=== PATIENT | female | born 1980 | race Caucasian/White ===

== ENCOUNTER 2019-01-25 14:29 | Emergency (ER) | payer OTHER ==
[~2019-01-25] VITALS: Ht 170.2 cm; Wt 85.5 kg
== END 2019-01-25 16:15 | disposition home or self-care (01) ==
LOC: ED 14:29
DX: S93.401A Sprain of unspecified ligament of right ankle, initial encounter (principal); F17.200 Nicotine dependence, unspecified, uncomplicated; Z88.0 Allergy status to penicillin; Z88.1 Allergy status to other antibiotic agents; X50.9XXA Other and unspecified overexertion or strenuous movements or postures, initial encounter
CPT/HCPCS: 73610; 99283-25

== ENCOUNTER 2019-02-13 15:06 | Emergency (ER) | payer OTHER ==
[~2019-02-13] VITALS: Ht 170.2 cm; Wt 85.5 kg
--- OUTSIDE RECORDS SUMMARY | ~2019-02-13 | XMS | Encounter Summary ---
Demographics + + + | Address | [address] | | | [place] [address] | + + + | Home Phone | | + + + | Preferred Language | Unknown | + + + | Marital Status | | + + + | Episcopalian Affiliation | Unknown | + + + | Race | Unknown | + + + | Ethnic Group | Unknown | + + + Author + + + | Author | [facility] [place] | | | and [place] | + + + | Organization | [facility] [place] | | | and [place] | + + + | Address | Unknown | + + + | Phone | Unavailable | + + + Support + + + + + | Name | Relationship | Address | Phone | + + + + + | Darrius Lenz | ECON | Unknown | | + + + + + | KishoreSoha | ECON | NA | | | | | JUNIE Gould | | + + + + + Care Team Providers + +------+ + | Care Bull Fiddle Player Name | Role | Phone | + +------+ + | Gian Kothari MD | PCP | | + +------+ + Reason for Referral Evaluate & Treat (Routine) +--------+ + + + + + | Status | Reason | Specialty | Diagnoses / | Referred By | Referred To | | | | | Procedures | Contact | Contact | +--------+ + + + + + | Closed | Specialty | Gastroenterol | Diagnoses | Cassidy, | Shahab, | | | Ainsley | carlosy | Epigastric | Vimal | Ralph Abraham MD | | | Required | | abdominal | Shiva DO | [address], | | | | | pain | [address] | | | | | | [address] | [place], | | | | | | [place], | [place] [address] | | | | | | [place] [address] | Phone: | | | | | | Phone: | [phone] | | | | | | [phone] | Fax: | | | | | | Fax: | [phone] | | | | | | [phone] | | +--------+ + + + + + Reason for Visit + + + | Reason | Comments | + + + | Abdominal Pain | | + + + | Gastric Reflux | | + + + Encounter Details +--------+ + + + + | Date | Type | Department | Care Team | Description | +--------+ + + + + | 11/19/ | Emergency | [facility] | Vimal Benjamin | Epigastric abdominal | | 2019 | | [facility] | DO Shiva [address] | pain (Primary Dx) | | | | CENTER [address] | [facility] | | | | | [place] | [place] [address] | | | | | [address] | [phone] | | | | | [phone] | | | +--------+ + + + + Social History + + + +--------+ + | Tobacco Use | Types | Packs/Day | Years | Date | | | | | Used | | + + + +--------+ + | Current Every Day | Cigarettes | 0.5 | 21 | Started: 1993 | | Smoker | | | | | + + + +--------+ + + +---+---+---+ | Smokeless Tobacco: | | | | | Never Used | | | | + +---+---+---+ + + +---------+ + | Alcohol Use | Drinks/We | oz/Week | Comments | | | ek | | | + + +---------+ + | Yes | 0 | 0.0 | Use: Current wine cooler every 6 months | | | Standard | | | | | drinks or | | | | | | | | | | equivalen | | | | | t | | | + + +---------+ + + + + | Sex Assigned at | Date Recorded | | | | + + + | Not on file | | + + + + + + + | Job Start Date | Occupation | Industry | + + + + | Not on file | Not on file | Not on file | + + + + + + + + | Travel History | Travel Start | Travel End | + + + + + + | No recent travel history available. | + + documented as of this encounter Last Filed Vital Signs + + + + | Vital Sign | Reading | Time Taken | + + + + | Blood Pressure | 136/85 | 11/19/20181753 PST | + + + + | Pulse | 81 | 11/19/20181753 PST | + + + + | Temperature | 37.5 C (99.5 F) | 11/19/20181753 PST | + + + + | Respiratory Rate | 16 | 11/19/20181753 PST | + + + + | Oxygen Saturation | 98% | 11/19/20181753 PST | + + + + | Inhaled Oxygen | - | - | | Concentration | | | + + + + | Weight | 87.5 kg (193 lb) | 11/19/20181753 PST | + + + + | Height | 167.6 cm (5' 6") | 11/19/20181753 PST | + + + + | Body Mass Index | 31.15 | 11/19/20181753 PST | + + + + documented in this encounter Discharge Instructions AttachmentsThe following attachments cannot be sent through Care Everywhere.Epigastric Pain (Uncertain Cause) (Ukrainian)documented in this encounter Medications at Time of Discharge + + + +---------+ + + | Medication | Sig | Dispensed | Refills | Start | End Date | | | | | | Date | | + + + +---------+ + + | famotidine | Take 1 tablet by | 20 | 0 | 11/19/19 | | | (PEPCID) 20 mg | mouth 2 times daily. | tablet | | 19 | | | tablet | | | | | | + + + +---------+ + + | omeprazole | Take 1 capsule by | 60 | 5 | 10/10/20 | | | (PRILOSEC) 20 mg | mouth 2 times daily. | capsule | | 18 | | | capsuleIndications: | | | | | | | Gastroesophageal | | | | | | | reflux disease, | | | | | | | esophagitis presence | | | | | | | not specified | | | | | | + + + +---------+ + + | raNITIdine | Take 150 mg by mouth | | 0 | | | | (ZANTAC) 150 mg | Daily. | | | | | | tablet | | | | | | + + + +---------+ + + | varenicline | Take 1 tablet by | 60 | 1 | 10/10/20 | | | (CHANTIX) 1 MG | mouth 2 times daily. | tablet | | 18 | | | tablet | | | | | | + + + +---------+ + + documented as of this encounter Plan of Treatment + +--------+ + + | Name | Priori | Associated Diagnoses | Order Schedule | | | ty | | | + +--------+ + + | Gastroenterology [facility] - | Routin | Epigastric | Ordered: 11/19/2018 | | Oli/Shahab/Geo | e | abdominal pain | | + +--------+ + + documented as of this encounter Procedures + +--------+ + + + | Procedure Name | Priori | Date/Time | Associated Diagnosis | Comments | | | ty | | | | + +--------+ + + + | EXTRA LAVENDER TOP | Routin | 11/19/2018 | | Results for this | | TUBE | e | 20:18 PST | | procedure are in the | | | | | | results section. | + +--------+ + + + | EXTRA GREEN TOP TUBE | Routin | 11/19/2018 | | Results for this | | | e | 20:18 PST | | procedure are in the | | | | | | results section. | + +--------+ + + + | URINALYSIS WITH | STAT | 11/19/2018 | | Results for this | | MICROSCOPIC | | 20:16 PST | | procedure are in the | | | | | | results section. | + +--------+ + + + | CBC WITH | STAT | 11/19/2018 | | Results for this | | DIFFERENTIAL | | 20:16 PST | | procedure are in the | | | | | | results section. | + +--------+ + + + | LIPASE | STAT | 11/19/2018 | | Results for this | | | | 20:16 PST | | procedure are in the | | | | | | results section. | + +--------+ + + + | COMPREHENSIVE | STAT | 11/19/2018 | | Results for this | | METABOLIC PANEL | | 20:16 PST | | procedure are in the | | | | | | results section. | + +--------+ + + + documented in this encounter Results Extra Green Top Tube (11/19/2018 20:18 PST) + +-------+ + + + | Component | Value | Ref Range | Performed | Pathologist | | | | | At | Signature | + +-------+ + + + | Extra Green | Done | | [facility] | | | Top Tube | | | [facility] | | | | | | [facility] | | | | | | CENTER - | | | | | | LABORATORY | | + +-------+ + + + + + | Specimen | + + | Blood | + + + + + + + | Performing | Address | City/State/Zipcode | Phone Number | | Organization | | | | + + + + + | [facility] | [address] | [place] | [phone] | | [facility] | | [address] | | | - LABORATORY | | | | + + + + + Extra Lavender Top Tube (11/19/2018 20:18 PST) + +-------+ + + + | Component | Value | Ref Range | Performed | Pathologist | | | | | At | Signature | + +-------+ + + + | Extra | Done | | [facility] | | | Lavender | | | [facility] | | | Top Tube | | | MEDICAL | | | | | | CENTER - | | | | | | LABORATORY | | + +-------+ + + + + + | Specimen | + + | Blood | + + + + + + + | Performing | Address | City/State/Zipcode | Phone Number | | Organization | | | | + + + + + | [facility] | [address] | [place] | [phone] | | [facility] | | [address] | | | - LABORATORY | | | | + + + + + Urinalysis With Microscopic (11/19/2018 20:16 PST) + + + + + + | Component | Value | Ref Range | Performed | Pathologist | | | | | At | Signature | + + + + + + | Color | Yellow | Light Yellow, | [facility] | | | | | Yellow, Straw | [facility] | | | | | | MEDICAL | | | | | | CENTER - | | | | | | LABORATORY | | + + + + + + | Clarity | Clear | Clear | [facility] | | | | | | [facility] | | | | | | MEDICAL | | | | | | CENTER - | | | | | | LABORATORY | | + + + + + + | pH, Urine | 6.0 | 5.0 - 8.0 | [facility] | | | | | | [facility] | | | | | | MEDICAL | | | | | | CENTER - | | | | | | LABORATORY | | + + + + + + | Specific | 1.018 | 1.001 - 1.030 | [facility] | | | [place] | | | [facility] | | | | | | MEDICAL | | | | | | CENTER - | | | | | | LABORATORY | | + + + + + + | Protein, | Negative | Negative | [facility] | | | Urine | | | [facility] | | | | | | MEDICAL | | | | | | CENTER - | | | | | | LABORATORY | | + + + + + + | Blood, | Negative | Negative | [facility] | | | Urine | | | [facility] | | | | | | MEDICAL | | | | | | CENTER - | | | | | | LABORATORY | | + + + + + + | Glucose, | Negative | Negative | [facility] | | | Urine | | | [facility] | | | | | | MEDICAL | | | | | | CENTER - | | | | | | LABORATORY | | + + + + + + | Ketones, | Negative | Negative | [facility] | | | Urine | | | [facility] | | | | | | MEDICAL | | | | | | CENTER - | | | | | | LABORATORY | | + + + + + + | Bilirubin, | Negative | Negative | [facility] | | | Urine | | | [facility] | | | | | | MEDICAL | | | | | | CENTER - | | | | | | LABORATORY | | + + + + + + | Nitrite, | Negative | Negative | [facility] | | | Urine | | | [facility] | | | | | | MEDICAL | | | | | | CENTER - | | | | | | LABORATORY | | + + + + + + | Leukocyte | Negative | Negative | [facility] | | | Esterase, | | | [facility] | | | Urine | | | MEDICAL | | | | | | CENTER - | | | | | | LABORATORY | | + + + + + + | Urobilinoge | Negative | 0.2 mg/dL, 1.0 | [facility] | | | n, Urine | | mg/dL, Negative | [facility] | | | | | | MEDICAL | | | | | | CENTER - | | | | | | LABORATORY | | + + + + + + | WBC UA | 0-2 | 0 - 2 /HPF | [facility] | | | | | | [facility] | | | | | | MEDICAL | | | | | | CENTER - | | | | | | LABORATORY | | + + + + + + | RBC UA | 0-2 | 0 - 2 /HPF | [facility] | | | | | | [facility] | | | | | | MEDICAL | | | | | | CENTER - | | | | | | LABORATORY | | + + + + + + | SQUAMOUS | 25-50 (A) | 0 - 2 /LPF | [facility] | | | EPITHELIAL | | | [facility] | | | UA | | | MEDICAL | | | | | | CENTER - | | | | | | LABORATORY | | + + + + + + | BACTERIA UA | Negative | Negative /HPF | [facility] | | | | | | [facility] | | | | | | MEDICAL | | | | | | CENTER - | | | | | | LABORATORY | | + + + + + + | MUCUS UA | Present (A) | Negative /LPF | [facility] | | | | | | [facility] | | | | | | MEDICAL | | | | | | CENTER - | | | | | | LABORATORY | | + + + + + + | AMORPHOUS | Few (A) | None Seen /HPF | [facility] | | | CRYSTALS | | | [facility] | | | | | | MEDICAL | | | | | | CENTER - | | | | | | LABORATORY | | + + + + + + + + | Specimen | + + | Urine | + + + + + + + | Performing | Address | City/State/Zipcode | Phone Number | | Organization | | | | + + + + + | [facility] | [address] | [place] | [phone] | | [facility] | | [address] | | | - LABORATORY | | | | + + + + + Lipase (11/19/2018 20:16 PST) + +-------+ + + + | Component | Value | Ref Range | Performed | Pathologist | | | | | At | Signature | + +-------+ + + + | Lipase | 49 | 0 - 60 U/L | [facility] | | | | | | [facility] | | | | | | [facility]ICAL | | | | | | CENTER - | | | | | | LABORATORY | | + +-------+ + + + + + | Specimen | + + | Blood | + + + + + + + | Performing | Address | City/State/Zipcode | Phone Number | | Organization | | | | + + + + + | [facility] | [address] | [place] | [phone] | | [facility] | | [address] | | | - LABORATORY | | | | + + + + + Comprehensive Metabolic Panel (11/19/2018 20:16 PST) + + + + + + | Component | Value | Ref Range | Performed | Pathologist | | | | | At | Signature | + + + + + + | Na | 137 | 136 - 149 | [facility] | | | | | mmol/L | [facility] | | | | | | MEDICAL | | | | | | CENTER - | | | | | | LABORATORY | | + + + + + + | K | 4.0 | 3.5 - 5.1 | [facility] | | | | | mmol/L | [facility] | | | | | | MEDICAL | | | | | | CENTER - | | | | | | LABORATORY | | + + + + + + | Cl | 102 | 98 - 109 mmol/L | [facility] | | | | | | [facility] | | | | | | MEDICAL | | | | | | CENTER - | | | | | | LABORATORY | | + + + + + + | CO2 | 25 | 24 - 31 mmol/L | [facility] | | | | | | [facility] | | | | | | MEDICAL | | | | | | CENTER - | | | | | | LABORATORY | | + + + + + + | Anion Gap | 10 | 3 - 16 mmol/L | [facility] | | | | | | [facility] | | | | | | MEDICAL | | | | | | CENTER - | | | | | | LABORATORY | | + + + + + + | Glucose | 90 | 70 - 109 mg/dL | [facility] | | | | | | [facility] | | | | | | MEDICAL | | | | | | CENTER - | | | | | | LABORATORY | | + + + + + + | BUN | 14 | 7 - 18 mg/dL | [facility] | | | | | | [facility] | | | | | | MEDICAL | | | | | | CENTER - | | | | | | LABORATORY | | + + + + + + | Creatinine | 0.71 | 0.60 - 1.30 | [facility] | | | | | mg/dL | [facility] | | | | | | MEDICAL | | | | | | CENTER - | | | | | | LABORATORY | | + + + + + + | eGFR if not | >60Comment: GLOMERULAR | >=60 | [facility] | | | | FILTRATION | mL/min/1.73m2 | [facility] | | | [place] | RATE,ESTIMATED mL/min | | MEDICAL | | | | /1.16b8Ydjl than 60 | | CENTER - | | | | Chronic kidney | | LABORATORY | | | | disease,if found over a | | | | | | 3-month period.Less than | | | | | | 15 Kidney | | | | | | failureFor | | | | | | Americans,multiply the | | | | | | calculated GFR by 1.21. | | | | | | | | | | + + + + + + | Ca | 10.0 | 8.3 - 10.5 | [facility] | | | | | mg/dL | [facility] | | | | | | MEDICAL | | | | | | CENTER - | | | | | | LABORATORY | | + + + + + + | Albumin | 3.9 | 3.2 - 5.0 g/dL | [facility] | | | | | | [facility] | | | | | | MEDICAL | | | | | | CENTER - | | | | | | LABORATORY | | + + + + + + | Bilirubin | 0.6Comment: This is an | 0.1 - 1.5 mg/dL | [facility] | | | Total | appended report. These | | [facility] | | | | results have been | | MEDICAL | | | | appended to a previously | | CENTER - | | | | preliminary verified | | LABORATORY | | | | report. | | | | + + + + + + | Total | 7.1 | 6.0 - 7.8 g/dL | [facility] | | | Protein | | | [facility] | | | | | | MEDICAL | | | | | | CENTER - | | | | | | LABORATORY | | + + + + + + | AST | 19Comment: This is an | 10 - 42 U/L | [facility] | | | | appended report. These | | [facility] | | | | results have been | | MEDICAL | | | | appended to a previously | | CENTER - | | | | preliminary verified | | LABORATORY | | | | report. | | | | + + + + + + | ALT | 18Comment: This is an | 6 - 45 U/L | [facility] | | | | appended report. These | | [facility] | | | | results have been | | MEDICAL | | | | appended to a previously | | CENTER - | | | | preliminary verified | | LABORATORY | | | | report. | | | | + + + + + + | Alkaline | 66Comment: This is an | 40 - 110 U/L | [facility] | | | Phosphatase | appended report. These | | [facility] | | | | results have been | | MEDICAL | | | | appended to a previously | | CENTER - | | | | preliminary verified | | LABORATORY | | | | report. | | | | + + + + + + | Globulin | 3.2 | 2.1 - 3.8 g/dL | [facility] | | | | | | [facility] | | | | | | MEDICAL | | | | | | CENTER - | | | | | | LABORATORY | | + + + + + + | Albumin/Zuri | 1.2 | 0.8 - 2.0 | [facility] | | | bulin Ratio | | | [facility] | | | | | | MEDICAL | | | | | | CENTER - | | | | | | LABORATORY | | + + + + + + | BUN/Creatin | 19.7 | | [facility] | | | ine Ratio | | | [facility] | | | | | | MEDICAL | | | | | | CENTER - | | | | | | LABORATORY | | + + + + + + + + | Specimen | + + | Blood | + + + + + + + | Performing | Address | City/State/Zipcode | Phone Number | | Organization | | | | + + + + + | [facility] | [address] | [place] | [phone] | | [facility] | | [address] | | | - LABORATORY | | | | + + + + + CBC with Differential (11/19/2018 20:16 PST) + + + + + + | Component | Value | Ref Range | Performed | Pathologist | | | | | At | Signature | + + + + + + | WBC | 11.4 (H) | 4.0 - 11.0 K/uL | [facility] | | | | | | [facility] | | | | | | [facility]ICAL | | | | | | CENTER - | | | | | | LABORATORY | | + + + + + + | RBC | 5.06 | 3.70 - 5.20 | [facility] | | | | | M/uL | [facility] | | | | | | [facility] | | | | | | CENTER - | | | | | | LABORATORY | | + + + + + + | Hemoglobin | 14.5 | 11.5 - 16.0 | [facility] | | | | | g/dL | [facility] | | | | | | [facility]ICAL | | | | | | CENTER - | | | | | | LABORATORY | | + + + + + + | Hematocrit | 45.0 | 34.0 - 47.0 % | [facility] | | | | | | [facility] | | | | | | MEDICAL | | | | | | CENTER - | | | | | | LABORATORY | | + + + + + + | MCV | 88.9 | 83.0 - 101.0 fL | [facility] | | | | | | [facility] | | | | | | MEDICAL | | | | | | CENTER - | | | | | | LABORATORY | | + + + + + + | MCH | 28.7 | 28.0 - 35.0 pg | [facility] | | | | | | [facility] | | | | | | MEDICAL | | | | | | CENTER - | | | | | | LABORATORY | | + + + + + + | MCHC | 32.2 | 32.0 - 36.0 | [facility] | | | | | g/dL | [facility] | | | | | | MEDICAL | | | | | | CENTER - | | | | | | LABORATORY | | + + + + + + | RDW-CV | 13.6 | <15.0 % | [facility] | | | | | | [facility] | | | | | | MEDICAL | | | | | | CENTER - | | | | | | LABORATORY | | + + + + + + | RDW-SD | 44.4 | 35.1 - 46.3 fL | [facility] | | | | | | [facility] | | | | | | MEDICAL | | | | | | CENTER - | | | | | | LABORATORY | | + + + + + + | Platelet | 299 | 140 - 440 K/uL | [facility] | | | Count | | | [facility] | | | | | | MEDICAL | | | | | | CENTER - | | | | | | LABORATORY | | + + + + + + | MPV | 11.2 | 6.5 - 12.4 fL | [facility] | | | | | | [facility] | | | | | | MEDICAL | | | | | | CENTER - | | | | | | LABORATORY | | + + + + + + | % | 55.3 | 45.0 - 82.0 % | [facility] | | | Neutrophils | | | [facility] | | | | | | MEDICAL | | | | | | CENTER - | | | | | | LABORATORY | | + + + + + + | % | 35.6 | 20.0 - 45.0 % | [facility] | | | Lymphocytes | | | [facility] | | | | | | MEDICAL | | | | | | CENTER - | | | | | | LABORATORY | | + + + + + + | % Monocytes | 7.2 | 4.0 - 12.0 % | [facility] | | | | | | [facility] | | | | | | MEDICAL | | | | | | CENTER - | | | | | | LABORATORY | | + + + + + + | % | 1.2 | 0.0 - 5.0 % | [facility] | | | Eosinophils | | | [facility] | | | | | | MEDICAL | | | | | | CENTER - | | | | | | LABORATORY | | + + + + + + | % Basophils | 0.5 | 0.0 - 1.0 % | [facility] | | | | | | [facility] | | | | | | MEDICAL | | | | | | CENTER - | | | | | | LABORATORY | | + + + + + + | % Immature | 0.2Comment: For | 0.0 - 0.4 % | [facility] | | | Granulocyte | patients, use the | | [facility] | | | s | special reference ranges | | MEDICAL | | | | listed below. | | CENTER - | | | | | | LABORATORY | | + + + + + + | Absolute | 6.33 | 1.80 - 8.50 | [facility] | | | Neutrophils | | K/uL | [facility] | | | | | | MEDICAL | | | | | | CENTER - | | | | | | LABORATORY | | + + + + + + | Absolute | 4.07 (H) | 0.60 - 3.20 | [facility] | | | Lymphocytes | | K/uL | [facility] | | | | | | MEDICAL | | | | | | CENTER - | | | | | | LABORATORY | | + + + + + + | Absolute | 0.82 | 0.00 - 1.00 | [facility] | | | Monocytes | | K/uL | [facility] | | | | | | MEDICAL | | | | | | CENTER - | | | | | | LABORATORY | | + + + + + + | Absolute | 0.14 | 0.00 - 0.40 | [facility] | | | Eosinophils | | K/uL | [facility] | | | | | | MEDICAL | | | | | | CENTER - | | | | | | LABORATORY | | + + + + + + | Absolute | 0.06 | 0.00 - 0.10 | [facility] | | | Basophils | | K/uL | [facility] | | | | | | MEDICAL | | | | | | CENTER - | | | | | | LABORATORY | | + + + + + + | Absolute | 0.02Comment: For | 0.00 - 0.03 | [facility] | | | Immature | patients, use | K/uL | [facility] | | | Granulocyte | the special reference | | MEDICAL | | | s | ranges listed below. | | CENTER - | | | | | | LABORATORY | | + + + + + + | % nRBC | 0 | 0 - 2 per 100 | [facility] | | | | | WBC's | [facility] | | | | | | MEDICAL | | | | | | CENTER - | | | | | | LABORATORY | | + + + + + + | Absolute | 0.00 | 0.00 - 0.01 | [facility] | | | nRBC | | K/uL | [facility] | | | | | | MEDICAL | | | | | | CENTER - | | | | | | LABORATORY | | + + + + + + + + | Specimen | + + | Blood | + + + + + | Narrative | Performed At | + + + | IMMATURE GRANULOCYTES - For patients, use the following | [facility] | | reference ranges: Trim. Absolute (K/uL) Percentage (%) | [facility] | | 1st 0.003-0.091 K/uL 0.0-0.9% 2nd 0.007-0.247 K/uL | [facility] | | 0.1-2.0% 3rd 0.018-0.456 K/uL 0.1-2.0% | - LABORATORY | + + + + + + + + | Performing | Address | City/State/Zipcode | Phone Number | | Organization | | | | + + + + + | [facility] | [address] | [place], [place] | [phone] | | [facility] | | [id number] | | | - LABORATORY | | | | + + + + + documented in this encounter Visit Diagnoses + + | Diagnosis | + + | Epigastric abdominal pain - Primary Abdominal pain, epigastric | + + documented in this encounter Administered Medications + +--------+ +-------+------+------+ | Medication Order | MAR | Action | Dose | Rate | Site | | | Action | Date | | | | + +--------+ +-------+------+------+ | famotidine (PEPCID) injection | Given | 11/19/19 | 20 mg | | | | 20 mg 20 mg, Intravenous, ONCE, | | 19 20:12 | | | | | 11/19/18 at 1950, For 1 dose, | | PST | | | | | Dilute 2 mL of famotidine with 8 | | | | | | | mL of normal saline to a final | | | | | | | concentration of 2 mg/mL. | | | | | | | Administer ordered dose over a | | | | | | | period of at least 2 minutes., | | | | | | + +--------+ +-------+------+------+ +---+---+ | | | +---+---+ documented in this encounter
--- OUTSIDE RECORDS SUMMARY | ~2019-02-13 | XMS | Encounter Summary ---
Demographics + + + | Address | [address] | | | [place] [address] | + + + | Home Phone | | + + + | Preferred Language | Unknown | + + + | Marital Status | | + + + | Rastafarian Affiliation | Unknown | + + + | Race | Unknown | + + + | Ethnic Group | Unknown | + + + Author + + + | Author | [facility] | | | and [place] | + + + | Organization | [facility] | | | and [place] | + + + | Address | Unknown | + + + | Phone | Unavailable | + + + Support + + + + + | Name | Relationship | Address | Phone | + + + + + | Darrius Lenz | ECON | Unknown | | + + + + + | Soha Novak | ECON | NA | | | | | [place] | | + + + + + Care Team Providers + +------+ + | Care Product Grader Name | Role | Phone | + +------+ + | Gian Kothari MD | PCP | | + +------+ + Reason for Visit +--------+ + | Reason | Comments | +--------+ + | Cough | ears feel plugged, runny nose x 2 weeks | +--------+ + Encounter Details +--------+---------+ + + + | Date | Type | Department | Care Team | Description | +--------+---------+ + + + | 12/16/ | Office | [facility] | Karen Lilly | Multiple URI | | 2019 | Visit | [facility] [address] | A, 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[address] | (Primary Dx); Acute | | | | [address] | [place] [address] | bronchitis, | | | | [address] [facility] | [phone] | unspecified organism | | | | [place] [address] | | | | | | [phone] | | | +--------+---------+ + + + Social History + + [...] + + + | Blood Pressure | 102/72 | 12/16/2018821 PST | + + + + | Pulse | 74 | 12/16/2018821 PST | + + + + | Temperature | 36.4 C (97.5 F) | 12/16/2018821 PST | + + + + | Respiratory Rate | 18 | 12/16/2018821 PST | + + + + | Oxygen Saturation | 97% | 12/16/2018821 PST | + + + + | Inhaled Oxygen | - | - | | Concentration | | | + + + + | Weight | 88 kg (194 lb) | 12/16/2018821 PST | + + + + | Height | 167.6 cm (5' 6") | 12/16/2018821 PST | + + + + | Body Mass Index | 31.31 | 12/16/2018821 PST | + + + + documented in this encounter Patient Instructions Patient Instructions Karen Lilly ARNP - 12/16/2018 8:20 PSTBactrim DS one tab tw ice daily till gone for infection. Mucinex DM 12 hour size and take one twice daily for the congestion and cough. Benzonatate 100 mg one every 6 hours as needed for bad cough. Drink lots of water and eat well and get enough rest. documented in this encounter Progress Notes Karen Lilly ARNP - 12/16/2018 0820 PST Yahaira Lenz is a 38 y.o. female Chief Complaint: Cough (ears feel plugged, runny nose x 2 weeks) HPI Has been using Sudafed, Dayquil, Tylenol and some ibuprofen. Just can't get well. Sta maia she took one of her daughters albuterol nebulizer treatments last night, "but it didn't do a thing for me." PREVENTIVE CARE/PRIOR VISITS 1. Any recommendations from Health Maintenance: Preventative Services TOPIC LAST DONE NEXT DUE Vaccine: Influenza 06/24/2018 Cervical Cancer Screening (Pap) 2012 Vaccine: Dtap/Tdap/Td 03/24/2012 03/24/2022 Vaccine: Pneumococcal 19-64 (Ppsv23 Only) Medium Risk 2001 2. Any immunizations necessary: Immunization History Administered Date(s) Administered TDAP, (ADOL/ADULT) 03/24/2012 Allergies Allergen Reactions Penicillins Anaphylaxis and Nausea And Vomiting Cephalexin Hives and Rash KEFLEX Nsaids GI BLEED when not taking with food Latex Rash Medications: Patient Reported Taking Dosage cetirizine (ZYRTEC) 10 mg tablet (Taking) Take 1 tablet by mouth Daily. Number of times this order has been changed since signin Order Audit T[facility] famotidine (PEPCID) 20 mg tablet (Taking) Take 1 tablet by mouth 2 times daily. Number of times this order has been changed since signin Order Audit [facility] fluticasone (FLONASE) 50 mcg/nasal spray (Taking) 1 spray by Nasal route 2 times daily. Number of times this order has been changed since signin Order Audit [facility] ibuprofen (ADVIL,MOTRIN) 600 MG tablet (Taking) Take 1 tablet by mouth every 8 hours as n eeded for Pain. Number of times this order has been changed since signin Order Audit [facility] omeprazole (PRILOSEC) 20 mg capsule (Taking) Take 1 capsule by mouth 2 times daily. Number of times this order has been changed since signin Order Audit [facility] pseudoePHEDrine (SUDAFED) 120 mg 12 hr tablet (Taking) Take 1 tablet by mouth every 12 ho urs as needed for Congestion. Number of times this order has been changed since signin Order Audit [facility] raNITIdine (ZANTAC) 150 mg tablet (Taking) Take 150 mg by mouth Daily. Number of times this order has been changed since signin Order Audit T[facility] varenicline (CHANTIX) 1 MG tablet (Taking) Take 1 tablet by mouth 2 times daily. Number of times this order has been changed since signin Order Audit [facility] Past Medical History She has a past medical history of Anemia; Attention deficit disorder with hyperactivity(314 .01); Body mass index 30.0-30.9, adult; Chronic post-traumatic stress disorder (PTSD); Depre ssion; Esophageal reflux; Gastric ulcer; GERD (gastroesophageal reflux disease); Headache; H yperlipidemia; Hypertension; Low back pain; Methamphetamine use (HCC); Primary dysmenorrhea; Right ankle pain; and Seasonal allergies. Past Surgical History She has a past surgical history that includes Inner ear surgery (1987); Tubal ligation (Luis redman, 2009); Tonsillectomy and adenoidectomy (1987); polypectomy (08/22/2014); Esophagus d ilation (08/22/2014); and Appendectomy. Family History: Her family history includes Asthma in her mother; COPD in her maternal grandmother and moth er; Depression in her brother, daughter, mother, sister, and son; Diabetes in her maternal g randmother; Heart disease in her maternal grandmother; High blood pressure in her maternal g randmother and mother; High cholesterol in her maternal grandmother and mother; Kidney disea se in her maternal grandmother and mother; Learning disability in her brother, daughter, fat her, maternal grandfather, maternal grandmother, mother, sister, and son; Mental illness in her brother, daughter, father, maternal grandmother, mother, sister, and son; Multiple scler osis in her maternal grandmother; Other (see comment) in her father; Substance abuse in her brother, daughter, father, maternal grandfather, maternal grandmother, mother, sister, and s on. Social History: Social History Social History Marital status: Spouse name: Darrius Number of children: 3 Years of education: N/A Social History Main Topics Smoking status: Current Every Day Smoker Packs/day: 0.50 Years: 21.00 Types: Cigarettes Start date: 1993 Smokeless tobacco: Never Used Alcohol use 0.0 oz/week Comment: Use: Current wine cooler every 6 months Drug use: No Comment: past use clean since may 2016 Sexual activity: Not Asked Other Topics Concern None Social History Narrative None Review of Systems Constitutional: Hasn't slept in two nights due to coughing. HENT: Positive for congestion, ear pain, postnasal drip, rhinorrhea and voice change. Negat lisandra for sneezing, sore throat and trouble swallowing. Eyes: My right eye seems blurry. Respiratory: Positive for cough and wheezing. Negative for chest tightness. States there is stuff in her throat after she coughs, but she can't cough it all the w ay out. Cardiovascular: Negative. Gastrointestinal: Coughs so hard she vomits a little bit. Endocrine: Negative. Genitourinary: Coughs so hard she wets her pants. Musculoskeletal: Negative. Skin: Negative. Allergic/Immunologic: Negative. Neurological: Positive for headaches. Hematological: Negative. Objective: Vitals: 12/16/18 0822 BP: 102/72 Pulse: 74 Resp: 18 Temp: 36.4 C (97.5 F) TempSrc: Oral SpO2: 97% Weight: 88 kg (194 lb) Height: 1.676 m (5' 6") Physical Exam Constitutional: She is oriented to person, place, and time. She appears well-developed and well-nourished. No distress. HENT: Head: Normocephalic and atraumatic. Right Ear: External ear normal. Left Ear: External ear normal. Mouth/Throat: Oropharynx is clear and moist. Pale red nose with large amount creamy dschg. Sinuses are not tender. Minimal throat redn ess. Eyes: Conjunctivae and EOM are normal. Right eye exhibits no discharge. No scleral icterus. Neck: Normal range of motion. Neck supple. No thyromegaly present. Cardiovascular: Normal rate, regular rhythm and normal heart sounds. No murmur heard. Pulmonary/Chest: Effort normal and breath sounds normal. No respiratory distress. Rare expiratory wheeze. Able to deep breath without having a coughing fit. Abdominal: Soft. Bowel sounds are normal. She exhibits no distension. Musculoskeletal: Normal gait, balance and posture Lymphadenopathy: She has no cervical adenopathy. Neurological: She is alert and oriented to person, place, and time. Skin: Skin is warm and dry. She is not diaphoretic. Psychiatric: She has a normal mood and affect. Her behavior is normal. Judgment and thought content normal. Nursing note and vitals reviewed. Results for orders placed or performed during the hospital encounter of 11/19/18 CBC with Differential Result Value Ref Range WBC 11.4 (H) 4.0 - 11.0 K/uL RBC 5.06 3.70 - 5.20 M/uL Hemoglobin 14.5 11.5 - 16.0 g/dL Hematocrit 45.0 34.0 - 47.0 % MCV 88.9 83.0 - 101.0 fL MCH 28.7 28.0 - 35.0 pg MCHC 32.2 32.0 - 36.0 g/dL RDW-CV 13.6 <15.0 % RDW-SD 44.4 35.1 - 46.3 fL Platelet Count 299 140 - 440 K/uL MPV 11.2 6.5 - 12.4 fL % Neutrophils 55.3 45.0 - 82.0 % % Lymphocytes 35.6 20.0 - 45.0 % % Monocytes 7.2 4.0 - 12.0 % % Eosinophils 1.2 0.0 - 5.0 % % Basophils 0.5 0.0 - 1.0 % % Immature Granulocytes 0.2 0.0 - 0.4 % Absolute Neutrophils 6.33 1.80 - 8.50 K/uL Absolute Lymphocytes 4.07 (H) 0.60 - 3.20 K/uL Absolute Monocytes 0.82 0.00 - 1.00 K/uL Absolute Eosinophils 0.14 0.00 - 0.40 K/uL Absolute Basophils 0.06 0.00 - 0.10 K/uL Absolute Immature Granulocytes 0.02 0.00 - 0.03 K/uL % nRBC 0 0 - 2 per 100 WBC's Absolute nRBC 0.00 0.00 - 0.01 K/uL Comprehensive Metabolic Panel Result Value Ref Range Na 137 136 - 149 mmol/L K 4.0 3.5 - 5.1 mmol/L Cl 102 98 - 109 mmol/L CO2 25 24 - 31 mmol/L Anion Gap 10 3 - 16 mmol/L Glucose 90 70 - 109 mg/dL BUN 14 7 - 18 mg/dL Creatinine 0.71 0.60 - 1.30 mg/dL eGFR if not >60 >=60 mL/min/1.73m2 Ca 10.0 8.3 - 10.5 mg/dL Albumin 3.9 3.2 - 5.0 g/dL Bilirubin Total 0.6 0.1 - 1.5 mg/dL Total Protein 7.1 6.0 - 7.8 g/dL AST 19 10 - 42 U/L ALT 18 6 - 45 U/L Alkaline Phosphatase 66 40 - 110 U/L Globulin 3.2 2.1 - 3.8 g/dL Albumin/Globulin Ratio 1.2 0.8 - 2.0 BUN/Creatinine Ratio 19.7 Lipase Result Value Ref Range Lipase 49 0 - 60 U/L Urinalysis With Microscopic Result Value Ref Range Color Yellow Light Yellow, Yellow, Straw Clarity Clear Clear pH, Urine 6.0 5.0 - 8.0 Specific [place] 1.018 1.001 - 1.030 Protein, Urine Negative Negative Blood, Urine Negative Negative Glucose, Urine Negative Negative Ketones, Urine Negative Negative Bilirubin, Urine Negative Negative Nitrite, Urine Negative Negative Leukocyte Esterase, Urine Negative Negative Urobilinogen, Urine Negative 0.2 mg/dL, 1.0 mg/dL, Negative WBC UA 0-2 0 - 2 /HPF RBC UA 0-2 0 - 2 /HPF SQUAMOUS EPITHELIAL UA 25-50 (A) 0 - 2 /LPF BACTERIA UA Negative Negative /HPF MUCUS UA Present (A) Negative /LPF AMORPHOUS CRYSTALS Few (A) None Seen /HPF Extra Lavender Top Tube Result Value Ref Range Extra Lavender Top Tube Done Extra Green Top Tube Result Value Ref Range Extra Green Top Tube Done Assessment: 1. Multiple URI sulfamethoxazole-trimethoprim (BACTRIM DS) 800-160 mg per tablet benzonatate (TESSALON) 100 mg capsule 2. Acute bronchitis, unspecified organism sulfamethoxazole-trimethoprim (BACTRIM DS) 800-1 60 mg per tablet benzonatate (TESSALON) 100 mg capsule Plans: 1. Multiple URI - sulfamethoxazole-trimethoprim (BACTRIM DS) 800-160 mg per tablet; Take 1 tablet by mouth 2 times daily for 10 days. Dispense: 20 tablet; Refill: 0 - benzonatate (TESSALON) 100 mg capsule; Take 1 capsule by mouth 3 times daily as needed fo r Cough. Dispense: 30 capsule; Refill: 0 2. Acute bronchitis, unspecified organism - sulfamethoxazole-trimethoprim (BACTRIM DS) 800-160 mg per tablet; Take 1 tablet by mouth 2 times daily for 10 days. Dispense: 20 tablet; Refill: 0 - benzonatate (TESSALON) 100 mg capsule; Take 1 capsule by mouth 3 times daily as needed fo r Cough. Dispense: 30 capsule; Refill: 0 Follow-up: Return if symptoms worsen or fail to improve. Care instructions and warning signs were discussed. Medications per orders. Side effects discussed. Labs and investigations per orders. documented in thi s encounter Plan of Treatment Not on filedocumented as of this encounter Visit Diagnoses + + | Diagnosis | + + | Multiple URI - Primary Acute upper respiratory infections of other multiple sites | + + | Acute bronchitis, unspecified organism | + + documented in this encounter
--- OUTSIDE RECORDS SUMMARY | ~2019-02-13 | XMS | Clinical Summary ---
Demographics + + + | Address | [address] | | | [place] [address] | + + + | Home Phone | | + + + | Preferred Language | Unknown | + + + | Marital Status | | + + + | Protestant Affiliation | Unknown | + + + | Race | Unknown | + + + | Ethnic Group | Unknown | + + + Author + + + | Author | [facility] | | | and [place] | + + + | Organization | [facility] | | | and [...] Team Providers + +------+ + | Care Marketing Information Coordinator Name | Role | Phone | + +------+ + | Gian Kothari MD | PP | | + +------+ + Allergies + + + + + + | Active Allergy | Reactions | Severity | Noted | Comments | | | | | Date | | + + + + + + | Cephalexin | Hives, Rash | Medium | 01/13/20 | KEFLEX | | | | | 14 | | + + + + + + | Latex | Rash | Low | 07/24/20 | | | | | | 14 | | + + + + + + | Nsaids | | Medium | 08/16/20 | GI BLEED when not | | | | | 17 | taking with food | + + + + + + | Penicillins | Anaphylaxis, Nausea | High | 01/13/20 | | | | And Vomiting | | 14 | | + + + + + + Medications + + + +---------+------+------+-------+ | Medication | Sig | Dispensed | Refills | Star | End | Statu | | | | | | t | Date | s | | | | | | Date | | | + + + +---------+------+------+-------+ | raNITIdine | Take 150 mg by mouth | | 0 | | | Activ | | (ZANTAC) 150 mg | Daily. | | | | | e | | tablet | | | | | | | + + + +---------+------+------+-------+ | omeprazole | Take 1 capsule by | 60 | 5 | 12/1 | | Activ | | (PRILOSEC) 20 mg | mouth 2 times daily. | capsule | | 8/20 | | e | | capsuleIndications: | | | | 18 | | | | Gastroesophageal | | | | | | | | reflux disease, | | | | | | | | esophagitis presence | | | | | | | | not specified | | | | | | | + + + +---------+------+------+-------+ | varenicline | Take 1 tablet by | 60 | 1 | 12/1 | | Activ | | (CHANTIX) 1 MG | mouth 2 times daily. | tablet | | 8/20 | | e | | tablet | | | | 18 | | | + + + +---------+------+------+-------+ | famotidine | Take 1 tablet by | 20 | 0 | 01/2 | | Activ | | (PEPCID) 20 mg | mouth 2 times daily. | tablet | | 7/20 | | e | | tablet | | | | 19 | | | + + + +---------+------+------+-------+ | fluticasone | 1 spray by Nasal | 16 g | 1 | 02/1 | | Activ | | (FLONASE) 50 | route 2 times daily. | | | 8/20 | | e | | mcg/nasal | | | | 19 | | | | sprayIndications: | | | | | | | | Acute viral | | | | | | | | sinusitis | | | | | | | + + + +---------+------+------+-------+ | pseudoePHEDrine | Take 1 tablet by | 30 | 0 | 02/1 | | Activ | | (SUDAFED) 120 mg 12 | mouth every 12 hours | tablet | | 8/20 | | e | | hr | as needed for | | | 19 | | | | tabletIndications: | Congestion. | | | | | | | Acute viral | | | | | | | | sinusitis | | | | | | | + + + +---------+------+------+-------+ | cetirizine | Take 1 tablet by | 30 | 1 | 02/1 | | Activ | | (ZYRTEC) 10 mg | mouth Daily. | tablet | | 8/20 | | e | | tabletIndications: | | | | 19 | | | | Acute viral | | | | | | | | sinusitis | | | | | | | + + + +---------+------+------+-------+ | ibuprofen | Take 1 tablet by | 90 | 0 | 02/1 | | Activ | | (ADVIL,MOTRIN) 600 | mouth every 8 hours | tablet | | 8/20 | | e | | MG | as needed for Pain. | | | 19 | | | | tabletIndications: | | | | | | | | Acute viral | | | | | | | | sinusitis | | | | | | | + + + +---------+------+------+-------+ | benzonatate | Take 1 capsule by | 30 | 0 | 02/2 | | Activ | | (TESSALON) 100 mg | mouth 3 times daily | capsule | | 3/20 | | e | | capsuleIndications: | as needed for Cough. | | | 19 | | | | Multiple URI, Acute | | | | | | | | bronchitis, | | | | | | | | unspecified organism | | | | | | | + + + +---------+------+------+-------+ | albuterol 2.5 mg/3 | Take 3 mLs by | 60 vial | 0 | 02/2 | | Activ | | mL nebulizer | nebulization every 4 | | | 5/20 | | e | | solution | hours as needed for | | | 19 | | | | | Wheezing or | | | | | | | | Shortness of Breath. | | | | | | + + + +---------+------+------+-------+ | azithromycin | Take 2 tablets by | 6 | 0 | 02/2 | | Activ | | (ZITHROMAX) 250 mg | mouth on day 1, and | tablet | | 5/20 | | e | | tablet | 1 tablet by mouth | | | 19 | | | | | every day | | | | | | + + + +---------+------+------+-------+ Active Problems + + + | Problem | Noted Date | + + + | Elevated glucose | 10/10/2018 | + + + | Gastroesophageal reflux disease with esophagitis | 10/10/2018 | + + + | Chronic midline low back pain without sciatica | 10/10/2018 | + + + | Abdominal bloating | 02/27/2018 | + + + | Generalized abdominal pain | 02/27/2018 | + + + | Diarrhea | 02/27/2018 | + + + | YOUSIF (generalized anxiety disorder) | 10/18/2017 | + + + | Coccyalgia | 09/26/2017 | + + + | Tobacco use | 09/26/2017 | + + + | Attention deficit disorder with hyperactivity(314.01) | | + + + + + | Overview: ICD-10 Record update | + + Encounters +--------+ + + + + | Date | Type | Specialty | Care Team | Description | +--------+ + + + + | 02/12/ | Telephone | | Gian Kothari, | Medication Prior | | 2018 | | | MD | Authorization | | | | | | (Omeprazole ) | +--------+ + + + + | 12/18/ | Office | | Rebekah Francis, | Bronchitis (Primary | | 2018 | Visit | | MD | Dx); Acute | | | | | | non-recurrent | | | | | | maxillary sinusitis; | | | | | | Tobacco dependence | +--------+ + + + + | 12/16/ | Office | | Karen Lilly | Multiple URI | | 2018 | Visit | | FEDERICA Reynolds | (Primary Dx); Acute | | | | | | bronchitis, | | | | | | unspecified organism | +--------+ + + + + | 12/11/ | Office | | Mily Gallegos | Acute viral | | 2018 | Visit | | FEDERICA Velasquez | sinusitis (Primary | | | | | | Dx) | +--------+ + + + + | 11/19/ | Emergency | | Vimal Benjamin | Epigastric abdominal | | 2018 | | | DO Shiva | pain (Primary Dx) | +--------+ + + + + from Last 3 Months Immunizations + + + + | Name | Dates Previously Given | Next Due | + + + + | TDAP, (ADOL/ADULT) | 03/24/2012 | | + + + + Family History + + +------+ + | Medical History | Relation | Name | Comments | + + +------+ + | Depression | Brother | 1/2 | | + + +------+ + | Learning disability | Brother | 1/2 | | + + +------+ + | Mental illness | Brother | 1/2 | | + + +------+ + | Substance abuse | Brother | 1/2 | | + + +------+ + | Depression | Daughter | | | + + +------+ + | Learning disability | Daughter | | | + + +------+ + | Mental illness | Daughter | | | + + +------+ + | Substance abuse | Daughter | | | + + +------+ + | Learning disability | Father | | | + + +------+ + | Mental illness | Father | | | + + +------+ + | Other (see comment) | Father | | Back problems | + + +------+ + | Substance abuse | Father | | | + + +------+ + | Learning disability | Maternal | | | | | Grandfath | | | | | er | | | + + +------+ + | Substance abuse | Maternal | | | | | Grandfath | | | | | er | | | + + +------+ + | COPD | Maternal | | | | | Grandmoth | | | | | er | | | + + +------+ + | Diabetes | Maternal | | | | | Grandmoth | | | | | er | | | + + +------+ + | Heart disease | Maternal | | | | | Grandmoth | | | | | er | | | + + +------+ + | High blood pressure | Maternal | | | | | Grandmoth | | | | | er | | | + + +------+ + | High cholesterol | Maternal | | | | | Grandmoth | | | | | er | | | + + +------+ + | Kidney disease | Maternal | | | | | Grandmoth | | | | | er | | | + + +------+ + | Learning disability | Maternal | | | | | Grandmoth | | | | | er | | | + + +------+ + | Mental illness | Maternal | | | | | Grandmoth | | | | | er | | | + + +------+ + | Multiple sclerosis | Maternal | | | | | Grandmoth | | | | | er | | | + + +------+ + | Substance abuse | Maternal | | | | | Grandmoth | | | | | er | | | + + +------+ + | Asthma | Mother | | | + + +------+ + | COPD | Mother | | | + + +------+ + | Depression | Mother | | | + + +------+ + | High blood pressure | Mother | | | + + +------+ + | High cholesterol | Mother | | | + + +------+ + | Kidney disease | Mother | | | + + +------+ + | Learning disability | Mother | | | + + +------+ + | Mental illness | Mother | | | + + +------+ + | Substance abuse | Mother | | | + + +------+ + | Depression | Sister | | | + + +------+ + | Learning disability | Sister | | | + + +------+ + | Mental illness | Sister | | | + + +------+ + | Substance abuse | Sister | | | + + +------+ + | Depression | Son | | | + + +------+ + | Learning disability | Son | | | + + +------+ + | Mental illness | Son | | | + + +------+ + | Substance abuse | Son | | | + + +------+ + + +------+--------+ + | Relation | Name | Status | Comments | + +------+--------+ + | Brother | 1/2 | Alive | | + +------+--------+ + | Daughter | | | | + +------+--------+ + | Father | | Alive | | + +------+--------+ + | Maternal Grandfather | | | | + +------+--------+ + | Maternal Grandmother | | | | + +------+--------+ + | Mother | | Alive | | + +------+--------+ + | Sister | | Alive | | + +------+--------+ + | Sister | 1/2 | Alive | | + +------+--------+ + | Sister | | Alive | | + +------+--------+ + | Sister | | Alive | | + +------+--------+ + | Sister | | Alive | | + +------+--------+ + | Son | | | | + +------+--------+ + Social History + + + +--------+ + | Tobacco Use | Types | Packs/Day | Years | Date | | | | | Used | | + + + +--------+ + | Current Every Day | Cigarettes | 0.5 | 21 | Started: 1994 | | Smoker | | | | | + + + +--------+ + + +---+---+---+ | Smokeless Tobacco: | | | | | Never Used | | | | + +---+---+---+ + + | Tobacco Cessation: Ready to Quit: Yes; Counseling Given: Yes | + + + + +---------+ + | Alcohol Use [...] recent travel history available. | + + Last Filed Vital Signs + + + + | Vital Sign | Reading | Time Taken | + + + + | Blood Pressure | 133/88 | 12/18/20181800 PST | + + + + | Pulse | 84 | 12/18/20181800 PST | + + + + | Temperature | 36.4 C (97.6 F) | 12/18/20181800 PST | + + + + | Respiratory Rate | 20 | 12/18/20181800 PST | + + + + | Oxygen Saturation | 97% | 12/18/20181800 PST | + + + + | Inhaled Oxygen | - | - | | Concentration | | | + + + + | Weight | 89.6 kg (197 lb 8.5 | 12/18/20181800 PST | | | oz) | | + + + + | Height | 167.6 cm (5' 6") | 12/18/20181800 PST | + + + + | Body Mass Index | 31.88 | 12/18/20181800 PST | + + + + Plan of Treatment + + + + + | Health Maintenance | Due Date | Last Done | Comments | + + + + + | Cervical Cancer | | | | | Screening (Pap) | 2 | | | + + + + + | Vaccine: Influenza | | | | | (Season Ended) | 9 | | | + + + + + | Vaccine: | | | Postponed from | | Pneumococcal 19-64 | 9 | | 2001 (Patient | | (PPSV23 only) Medium | | | Declined) | | Risk (1 of 1 - | | | | | PPSV23) | | | | + + + + + | Vaccine: | | 03/24/2012 | | | Dtap/Tdap/Td (2 - | 2 | | | | Td) | | | | + + + + + Procedures + +--------+ + + + | Procedure Name | Priori | Date/Time | Associated Diagnosis | Comments | | | ty | | | | + +--------+ + + + | IMAGING REPORT - | | 01/25/2019 | | Results for this | | EXTERNAL SCAN | | 0:00 PDT | | procedure are in the | [...] section. | + +--------+ + + + from Last 3 Months Results IMAGING REPORT - EXTERNAL SCAN (01/25/2019 0:00 PDT) + + + | Narrative | Performed At | + + + | Ordered by an | | | unspecified provider. | | + + + Extra Lavender Top Tube (11/19/2018 20:18 PST) + +-------+ + + + | Component | Value | Ref Range | Performed | Pathologist | | | | | At | Signature | + +-------+ + + + | Extra | Done | | [facility] | | | Lavender | | | [facility] | | | Top Tube | | [...] ST. | [address] | [place], [place] | [phone] | | [facility] | | [address] | | | - LABORATORY | | | | + + + + + Extra Green Top Tube (11/19/2018 20:18 PST) + +-------+ + + + | Component | Value | Ref Range | Performed | Pathologist | | | | | At | Signature | + +-------+ + + + | Extra Green | Done | | [facility] | | | Top Tube | | | [facility] | | [...] + + | [facility] | [address] | [place] | [phone] | | [facility] | | [address] | | | - LABORATORY | | [...] - 1.030 | [facility] | | | [place] | | | [facility] | | [...] | + + + + + | [facility] | [address] | [place] | [phone] | | [facility] | | [address] | | | - LABORATORY | | | | + + + + + CBC with Differential (11/19/2018 20:16 PST) + + + + + + | Component | Value | Ref Range | Performed | Pathologist | | | | | At | Signature | + + + + + + | WBC | 11.4 (H) | 4.0 - 11.0 K/uL | [facility] | | | | | | [facility] | | | | | | MEDICAL | | | | | | CENTER - | | | | | | LABORATORY | | + + + + + + | RBC | 5.06 | 3.70 - 5.20 | [facility] | | | | | M/uL | [facility] | | | | | | MEDICAL | | | | | | CENTER - | | | | | | LABORATORY | | + + + + + + | Hemoglobin | 14.5 | 11.5 - 16.0 | [facility] | | | | | g/dL | [facility] | | | | [...] | | Monocytes | | K/uL | [facility] | | | | | | MEDICAL | | | | | | CENTER - | | | | | | LABORATORY | | + + + + + + | Absolute | 0.14 | 0.00 - 0.40 | [facility] | | | Eosinophils | | K/uL | [facility] | | | | | | MEDICAL | | | | | | CENTER - | | | | | | LABORATORY | | + + + + + + | Absolute | 0.06 | 0.00 - 0.10 | [facility] | | | Basophils | | K/uL | [facility] | [...] | | | | | WBC's | [facility] | | | | [...] Trim. Absolute (K/uL) Percentage (%) | [facility] | | 1st 0.003-0.091 K/uL 0.0-0.9% 2nd 0.007-0.247 K/uL | MEDICAL CENTER | | 0.1-2.0% 3rd 0.018-0.456 K/uL 0.1-2.0% | - LABORATORY | + + + + + + + + | Performing | Address | City/State/Zipcode | Phone Number | | Organization | | | | + + + + + | [facility] | [address] | [place] | [phone] | | [facility] | | [address] | | | - LABORATORY | | | | + + + + + Lipase (11/19/2018 20:16 PST) + +-------+ + + + | Component | Value | Ref Range | Performed | Pathologist | | | | | At | Signature | + +-------+ + + + | Lipase | 49 | 0 - 60 U/L | [facility] | | | | | | [facility] | | | | | [...] | [address] | [place] | [phone] | | [facility] | | [address] | | | - LABORATORY | | [...] | | | | | mmol/L | [facility] | | | | [...] 14 | 7 - 18 mg/dL | [place] | | | | | | [facility] | | | | | | MEDICAL | | | | | | CENTER - | | | | | | LABORATORY | | + + + + + + | Creatinine | 0.71 | 0.60 - 1.30 | [place] | | | | | mg/dL | [facility] | | | | | | MEDICAL | | | | | | CENTER - | | | | | | LABORATORY | | + + + + + + | eGFR if not | >60Comment: GLOMERULAR | >=60 | [place] | | | | FILTRATION | mL/min/1.73m2 | [facility] | | | MALTESE | RATE,ESTIMATED mL/min | | MEDICAL | | | | /1.71c3Ohki than 60 | | CENTER - | [...] | 10.0 | 8.3 - 10.5 | [facility] | | | | | mg/dL | [facility] | | | | | | MEDICAL | | | | | | CENTER - | | | | | | LABORATORY | | + + + + + + | Albumin | 3.9 | 3.2 - 5.0 g/dL | [facility] | | | | [...] | | | Protein | | | [facility] | | | | | | MEDICAL | | | | | | CENTER - | | | | | | LABORATORY | | + + + + + + | AST | 19Comment: This is an | 10 - 42 U/L | [facility] | | | | appended report. These | | [facility] | | | | results have [...] | | appended report. These | | [facility] | | | | results have [...] | bulin Ratio | | | [facility] | | | | | | MEDICAL | | | | | | CENTER - | | | | | | LABORATORY | | + + + + + + | BUN/Creatin | 19.7 | | [facility] | | | ine Ratio | | | [facility] | | [...] ST. | [address] | [place] | [phone] | | [facility] | | [address] | | | - LABORATORY | | | | + + + + + from Last 3 Months Insurance + +--------+ +--------+-------+---------+--------+ | Payer | Benefi | Subscriber | Effect | Phone | Address | Type | | | t Plan | ID | lisandra | | | | | | / | | Dates | | | | | | Group | | | | | | + +--------+ +--------+-------+---------+--------+ | [employer]ICA[employer] HMO | FINN | [id number] | 04/23/20 | | | Medica | | | APPLE | 2 | 17-Pre | | | id | | | | | sent | | | | | | [place] | | | | | | | | [place] | | | | | | + +--------+ +--------+-------+---------+--------+ + +--------+ +--------+ + + | Guarantor Name | Accoun | Relation to | Date | Phone | Billing Address | | | t Type | Patient | of | | | | | | | | | | + +--------+ +--------+ + + | Yahaira Lenz | Person | Self | [birth year] | [address] | | [place] | semaj/Buddy | | 1980 | [phone] | [place] | | | [place] | | | 2 (Home) | [address] | + +--------+ +--------+ + + Advance Directives Patient has advance care planning documents on file. For more information, please contact:[facility] and [facility] [place] [address]
--- OUTSIDE RECORDS SUMMARY | ~2019-02-13 | XMS | Encounter Summary ---
Demographics + + + | Address | [address] | | | [place] [address] | + + + | Home Phone | | + + + | Preferred Language | Unknown | + + + | Marital Status | | + + + | Hinduism Affiliation | Unknown | + + + | Race | Unknown | + + + | Ethnic Group | Unknown | + + + Author + + + | Author | [facility] | | | and [place] | + + + | Organization | [facility] | | | [...] Team Providers + +------+ + | Care Hotel Office Manager Name | Role | Phone | + +------+ + | Gian Kothari MD | PCP | | + +------+ + Reason for Visit + + + | Reason | Comments | + + + | Medication Prior | Omeprazole | | Authorization | | + + + Encounter Details +--------+ + + + + | Date | Type | Department | Care Team | Description | +--------+ + + + + | 02/12/ | Telephone | [facility] | Gian Kothari, | Medication Prior | | 2019 | | MEDICINE [address] | MD Ralph CORDOBA | Authorization | | | | [facility] | [place], [place] | (Omeprazole ) | | | | [place] [address] | [id number] | | | | | [phone] | | | +--------+ + + + [...] as of this encounter Plan of Treatment Not on filedocumented as of this encounter Visit Diagnoses Not on filedocumented in this encounter"
--- OUTSIDE RECORDS SUMMARY | ~2019-02-13 | XMS | Encounter Summary ---
Demographics + + + | Address | [address] | | | [place] [address] | + + + | Home Phone | | + + + | Preferred Language | Unknown | + + + | Marital Status | | + + + | Jehovah'S Witness Affiliation | Unknown | + + + | Race | Unknown | + + + | Ethnic Group | Unknown | + + + Author + + + | Author | [facility] | | | and [place] | + + + | Organization | [facility] | | | [...] | + + + + + | Aye NovakSoha | ECON | NA | | | | | JUNIE Gould | | + + + + + Care Team Providers + +------+ + | Care Material Reprocessing Associate Name | Role | Phone | + +------+ + | Gian Kothari MD | PCP | | + +------+ + Reason for Visit + + + | Reason | Comments | + + + | Shortness of Breath | Room 8. x today | + + + | Chest Pain | pain/tightness | + + + | Bronchitis | Dx on Tuesday. on Bactrim | + + + | Otalgia | right x 3 days | + + + Encounter Details +--------+---------+ + + + | Date | Type | Department | Care Team | Description | +--------+---------+ + + + | 12/18/ | Office | [facility] | Rebekah Francis, | Bronchitis (Primary | | 2019 | Visit | CARE [address] | MD [address] | Dx); Acute | | | | [place], [place] | [place], [place] | non-recurrent | | | | [address] | [id number] | maxillary sinusitis; | | | | [phone] | | Tobacco dependence | +--------+---------+ + + + Social History [...] + | Blood Pressure | 133/88 | 12/18/2018 1801 PST | + + + + | [...] Height | 167.6 cm (5' 6") | 12/18/2018 1801 PST | + + + + | Body Mass Index | 31.88 | 12/18/2018 1801 PST | + + + + documented in this encounter Patient Instructions Patient Instructions Rebekah Francis MD - 12/18/2018 18:46 PST Hold the sulfamethoxazole for now. Viral or Bacterial Bronchitis with Wheezing(Adult) Bronchitis is an infection of the air passages. It often occurs during a cold and is usuall y caused by a virus. Symptoms include cough with mucus (phlegm) and low-grade fever. This il lness is contagious during the first few days and is spread through the air by coughing and sneezing, or by direct contact (touching the sick person and then touching your own eyes, no se, or mouth). If there is a lot of inflammation, air flow is restricted. The air passages may also go int o spasm, especially if you have asthma. This causes wheezing and difficulty breathing even i n people who do not have asthma. Bronchitis usually lasts 7 to 14 days. The wheezing should improve with treatment during e first week. An inhaler is often prescribed to relax the air passages and stop wheezing. An tibiotics will be prescribed if your doctor thinks there is also a secondary bacterial infec tion. Home care If symptoms are severe, rest at home for the first 2 to 3 days. When you go back to your usual activities, don't let yourself get too tired. Do not smoke. Also avoid being exposed to secondhand smoke. You may use xado-xpg-rqajswl medicine to control fever or pain, unless another medicine was prescribed. Note: If you have chronic liver or kidney disease or have ever had a stomach ulcer or gastrointestinal bleeding, talk with your healthcare provider before using these m edicines. Also talk to your provider if you are taking medicine to prevent blood clots.) Asp irin should never be given to anyone younger than 18 years of age who is ill with a viral in fection or fever. It may cause severe liver or brain damage. Your appetite may be poor, so a light diet is fine. Avoid dehydration by drinking 6 to 8 glasses of fluids per day (such as water, soft drinks, sports drinks, juices, tea, or soup) . Extra fluids will help loosen secretions in the nose and lungs. Bibm-hbp-eeimjjm cough, cold, and sore-throat medicines will not shorten the length of t he illness, but they may be helpful to reduce symptoms. (Note: Do not use decongestants if y ou have high blood pressure.) If you were given an inhaler, use it exactly as directed. If you need to use it more oft en than prescribed, your condition may be worsening. If this happens, [facility]. If prescribed, finish all antibiotic medicine, even if you are feeling better after only a few days. Follow-up care Follow up with your healthcare provider, or as advised. If you had an X-ray or ECG (electro cardiogram), a specialist will review it. You will be notified of any new findings that may affect your care. If you are age 65 or older, or if you have a chronic lung disease or condition that affects your immune system, or you smoke, ask your healthcare provider about getting a pneumococcal vaccine and a yearly flu shot (influenza vaccine). When to seek medical advice Call your healthcare provider right away if any of these occur: Fever of 100.4F (38C) or higher, or as directed by your healthcare provider Coughing up increasing amounts of colored sputum Weakness, drowsiness, headache, facial pain, ear pain, or a stiff neck Call 911 Call 911 if any of these occur. Coughing up blood Worsening weakness, drowsiness, headache, or stiff neck Increased wheezing not helped with medication, shortness of breath, or pain with breathi ng Date Last Reviewed: 07/06/201519995431-1921 The [email or web address]. [address] [place] [address], [place] [address]. All righ ts reserved. This information is not intended as a substitute for professional medical care. Always follow your healthcare professional's instructions. documented in this encounter Progress Notes Rebekah Francis MD - 12/18/2018 8885 PSTFormatting of this note might be different from brisa poe original. Chief Complaint: Shortness of Breath (Room 8. x today); Chest Pain (pain/tightness ); Bronc hitis (Dx on Tuesday. on Bactrim); and Otalgia (right x 3 days ) Yahaira is a 38 y.o. female who comes in complaining of upper respiratory symptoms for over 2 weeks, with nasal congestion, feeling tired, with mild sore throat and mild congested cou gh. Now she is getting a little short of breath and feels wheezy. She smokes about 5 cigar ettes a day at this point. She used her daughter's albuterol nebulizer today and felt a lot better. She was given Septra for sinusitis in [facility] on 12/11. She doesn't seem to b e getting any better. Yahaira has no other complaints. Patient's medications, allergies, past medical, surgical, social and family histories were reviewed and updated as appropriate. ROS: See HPI Objective: BP 133/88 | Pulse 84 | Temp 36.4 C (97.6 F) (Temporal) | Resp 20 | Ht 1.676 m (5' 6 ") | Wt 89.6 kg (197 lb 8.5 oz) | LMP 11/24/2018 (Approximate) | SpO2 97% | BMI 31.88 kg /m General Appearance: Alert, cooperative, no distress, appears stated age Head: Normocephalic, without obvious abnormality, atraumatic Eyes: PERRL, conjunctiva/corneas clear Ears: Normal TM's and external ear canals, gross normal hearing Nose: congested Throat: Clear Neck: Supple, symmetrical, with no anterior cervical adenopathy Heart regular rate and rhythm Lungs: Decreased breath sounds with inspiratory and expiratory wheezing and anterior rhonc hi no rales, respirations unlabored Skin: Skin color, texture, turgor normal, no rashes or lesions Assessment and Plans: Asthmatic bronchitis-- Albuterol nebulizer treatment here really improved her air movement and decreased the wheez ing Will treat with hold the Septra for now. Try azithromycin Z-Tony. She has use of her daugh ters nebulizer and so I gave her a prescription for some albuterol and I gave for the tubing me used here today. Prednisone 40 mg daily for 5 days. Take with food. Steroid warnings given. Sinusitis-- Hold onto the Septra for now. Do not take the azithromycin and Septra together. Saline si nus irrigation and steam the sinuses with steam inhalation in the shower. Tobacco dependence-- Smoking cessation counseling given. Recheck in a couple of days. Return to clinic if symptoms persist, change or worsen over following week despite that. This note was dictated using [employer] voice recognition software. Occasional wrong- word or s ound-alike substitutions may have occurred due to the inherent limitations of voice recognit ion software. Please read the chart carefully and recognize, using context, where these subs titutions have occurred. Sri Jackson RN - 0 12/18/2018 1715 PSTAdministered Albuterol nebulizer treatment per physician order. Patient to lerated well and stated she felt "a little" better. Sri Escalante RN documented in this enco unter Plan of Treatment Not on filedocumented as of this encounter Visit Diagnoses + + | Diagnosis | + + | Bronchitis - Primary Bronchitis, not specified as acute or chronic | + + | Acute non-recurrent maxillary sinusitis | + + | Tobacco dependence Tobacco use disorder | + + documented in this encounter Administered Medications + +--------+ +--------+------+ + | Medication Order | MAR | Action | Dose | Rate | Site | | | Action | Date | | | | + +--------+ +--------+------+ + | albuterol 2.5 mg/3 mL nebulizer | Given | 12/18/19 | 2.5 mg | | Other | | solution 2.5 mg 2.5 mg, | | 19 18:19 | | | (Comment | | Nebulization, ONCE, 12/18/18 | | PST | | | ) | | at 1845, For 1 dose, nurse will | | | | | | | administer., | | | | | | + +--------+ +--------+------+ + +---+---+ | | | +---+---+ documented in this encounter
--- OUTSIDE RECORDS SUMMARY | ~2019-02-13 | XMS | Encounter Summary ---
Demographics + + + | Address | [address] | | | [place] [address] | + + + | Home Phone | | + + + | Preferred Language | Unknown | + + + | Marital Status | | + + + | Congregation Affiliation | Unknown | + + + | Race | Unknown | + + + | Ethnic Group | Unknown | + + + Author + + + | Author | [facility] | | | and [place] | + + + | Organization | [facility] | | | [...] Team Providers + +------+ + | Care Clinical Manager Home Care Name | Role | Phone | + [...] abdominal | Shiva DO | [address], | | | | | pain | [address] | [address] | | | | | | [address] | [place], | | | | | | [place], | [place] [address] | | | | | | [place] [address] | Phone: | | | | | | Phone: | [phone] | | | | | | [phone] | Fax: | | | | | | Fax: | [phone] | | | | | | [phone] | | +--------+ + + + + [...] + + | 11/19/ | Emergency | [facility] | Vimal Benjamin | Epigastric abdominal | | 2019 | | [facility] | DO Shiva [address] | pain (Primary Dx) | | | | CENTER [address] | [facility] | | | | | [place] | [place] [address] | | | | | [address] | [phone] | | | | | [phone] | | | +--------+ + + + [...] sent through Care Everywhere.Epigastric Pain (Uncertain Cause) (Northern Irish)documented in this encounter Medications at Time of [...] | + +--------+ + + | Gastroenterology [facility] - | Routin | Epigastric | [...] + | [facility] | [address] | [place] | [phone] | | [facility] | | [address] | | | - LABORATORY | | [...] [address] | [place] | [phone] | | [facility] | | [address] | | | - LABORATORY | | [...] - 1.030 | [facility] | | | [place] | | | [facility] | | [...] + | [facility] | [address] | [place] | [phone] | | [facility] | | [address] | | | - LABORATORY | | [...] + | [facility] | [address] | [place] | [phone] | | [facility] | | [address] | | | - LABORATORY | | [...] mL/min/1.73m2 | [facility] | | | [place] | RATE,ESTIMATED mL/min | | MEDICAL | | | | /1.06c7Zabw than 60 | | CENTER - | [...] + | [facility] | [address] | [place] | [phone] | | [facility] | | [address] | | | - LABORATORY | | [...] Trim. Absolute (K/uL) Percentage (%) | [facility] | | 1st 0.003-0.091 K/uL 0.0-0.9% 2nd 0.007-0.247 K/uL | [facility] | | 0.1-2.0% 3rd 0.018-0.456 K/uL 0.1-2.0% | - LABORATORY | + + + + + + + + | Performing | Address | City/State/Zipcode | Phone Number | | Organization | | | | + + + + + | [facility] | [address] | [place], [place] | [phone] | | [facility] | | [address] | | | - LABORATORY | | [...]
--- OUTSIDE RECORDS SUMMARY | ~2019-02-13 | XMS | Encounter Summary ---
Demographics + + + | Address | [address] | | | [place] [address] | + + + | Home Phone | | + + + | Preferred Language | Unknown | + + + | Marital Status | | + + + | Denominational Affiliation | Unknown | + + + | Race | Unknown | + + + | Ethnic Group | Unknown | + + + Author + + + | Author | [facility] | | | and [place] | + + + | Organization | [facility] | | | and [...] Team Providers + +------+ + | Care Pension Examiner Name | Role | Phone | + +------+ + | Gian Kothari MD | PCP | | + +------+ + Reason for Visit + + + | Reason | Comments | + + + | Sinus Pain | x 1 wk BRANNON/Facial tenderness/green & yellow drainage | + + + Encounter Details +--------+---------+ + + + | Date | Type | Department | Care Team | Description | +--------+---------+ + + + | 12/11/ | Office | [facility] | Mily Gallegos | Acute viral | | 2019 | Visit | [facility] | [place] [address] | sinusitis (Primary | | | | [address] [place] | RICHA ROJAS | Dx) | | | | [place] [address] | [facility], | | | | | [phone] | [place] [address] | | | | | | [phone] | | | | | | | | +--------+---------+ + + + [...] + + + | Blood Pressure | 118/60 | 12/11/20181457 PST | + + + + | Pulse | 85 | 12/11/20181457 PST | + + + + | Temperature | 36.7 C (98.1 F) | 12/11/20181457 PST | + + + + | Respiratory Rate | 18 | 12/11/20181457 PST | + + + + | Oxygen Saturation | 100% | 12/11/20181457 PST | + + + + | Inhaled Oxygen | - | - | | Concentration | | | + + + + | Weight | 89.2 kg (196 lb 9.6 | 12/11/20181457 PST | | | oz) | | + + + + | Height | 167.6 cm (5' 6") | 12/11/20181457 PST | + + + + | Body Mass Index | 31.73 | 12/11/20181457 PST | + + + + documented in this encounter Patient Instructions Patient Instructions Rosy MilyFEDERICA Estrada - 12/11/2018 15:17 PSTFormatting of this no te might be different from the original. Sinusitis (No Antibiotics) The sinuses are air-filled spaces within the bones of the face. They connect to the inside of the nose.Sinusitisis an inflammation of the tissue that lines the sinuses. Sinusitis can occur during a cold.It can also happen due to allergies to pollens and other particle s in the air.It can cause symptoms such as sinus congestion,headache, sore throat, facia l swelling,and a feeling of fullness. It may also cause a low-grade fever.Your sinusitis does not include an infection with bacteria. Because of this, antibiotics are not used to t reat this problem. Home care Drink plenty of water, hot tea, and other liquids. This may help thin nasal mucus. It al so may help your sinuses drain fluids. Heat may help soothe painful areas of your face. Use a towel soaked in hot water. Or, st and in the shower and direct the warm spray onto your face. Using a vaporizer along with a m enthol rub at night may also help soothe symptoms. Anexpectorantwith guaifenesin may help thin nasal mucus and help your sinuses drain fluids. You can use an trpk-luc-wjnhfoxraosnpqtvgua,unless a similar medicine was prescribed to you. Nasal sprays work the fastest. Use one that contains phenylephrine or oxymetazoline . First blow your nose gently. Then use the spray. Do not use these medicines more often cha n directed on the label. If you do, your symptoms may get worse. You may also take pills cha t contain pseudoephedrine. Don t use products that combine multiple medicines. This is bec ause side effects may be increased. Read all medicine labels. You can also ask the pharmacis t for help. (People with high blood pressure should not use decongestants. They can raise bl ood pressure.) Lprj-hqq-kyjhlyvnxlqekhdawjvaucmh help if allergies contributed to your sinusitis. Use acetaminophen or ibuprofen to control pain, unless another pain medicine was prescri bed to you. If you have chronic liver or kidney disease or ever had a stomach ulcer, talk wi th your healthcare provider before using these medicines. (Aspirin should never be taken by anyone under age 18 who is ill with a fever. It may cause severe liver damage.) Use nasal rinses or irrigation as instructed by your healthcare provider. Don't smoke. This can make symptoms worse. Follow-up care Follow up with your healthcare provider or our staff if you are better in 1 week. When to seek medical advice Call your healthcare provider if any of these occur: Green or yellow fluid draining from your nose or into your throat Facial pain or headache that gets worse Stiff neck Unusual drowsiness or confusion Swelling of your forehead or eyelids Vision problems, such as blurred or double vision Fever of100.4F (38C)or higher, or as directed by your healthcare provider Seizure Breathing problems Symptoms that don't go away in 10 days Date Last Reviewed: 08/24/201719994941-5994 [employer]. [address] [place] [address]. All righ ts reserved. This information is not intended as a substitute for professional medical care. Always follow your healthcare professional's instructions. Self-Care for Sinusitis Drinking plenty of water can help sinuses drain. Sinusitis can often be managed with self-care. Self-care can keep sinuses moist and make yo u feel more comfortable. Remember to follow your doctor's instructions closely. This can lucy e a big difference in getting your sinus problem under control. Drink fluids Drinking extra fluids helps thin your mucus. This lets it drain from your sinuses more easi ly. Have aglass of water every hour or two. A humidifier helps in much the same way. Fluid s can also offset the drying effects of certain medicines. If you use a humidifier, follow t he product maker's instructions on how to use it. Clean it on a regular schedule. Use saltwater rinses Rinses help keep your sinuses and nose moist. Mix a teaspoon of salt in 8 ounces of fresh, warm water. Use a bulb syringe to gently squirt the water into your nose a few times a day. You can also buy ready-made saline nasal sprays. Apply hot or cold packs Applying heat to the area surrounding your sinuses may make you feel more comfortable. Use a hot water bottle or a hand towel dipped in hot water. Some people also find ice packs effe ctive for relieving pain. Medicines Your doctor may prescribe medications to help treat your sinusitis. If you have an infectio n, antibiotics can help clear it up. If you are prescribed antibiotics, take all pills on sc hedule until they are gone, even if you feel better. Decongestants help relieve swelling. Us e decongestant sprays for short periods only under the direction of your doctor. If you have allergies, your doctor may prescribe medications to help relieve them. Date Last Reviewed: 07/24/201619990498-2030 [employer]. [address] [place] [address], [place] [address]. All righ ts reserved. This information is not intended as a substitute for professional medical care. Always follow your healthcare professional's instructions. documented in this encounter Progress Notes Mily Gallegos ARNP - 12/11/2018 1500 PST Subjective: Yahaira Lenz is a 38 y.o. female who presents to the clinic with a complaint of Si nus Pain (x 1 wk BRANNON/Facial tenderness/green & yellow drainage) Sinus Problem This is a new problem. Episode onset: over 1 week ago. Progression since onset: significant ly worsening for the past 3 days. There has been no fever. Her pain is at a severity of 8/10 . Associated symptoms include chills, congestion, coughing (mild), ear pain (right), headach es, a hoarse voice, sinus pressure, sneezing, a sore throat ("irritation") and swollen gland s. Pertinent negatives include no diaphoresis, neck pain or shortness of breath. Treatments tried: Sudafed, Dayquil, Daytime sinus. Allergies Allergen Reactions Penicillins Anaphylaxis and Nausea And Vomiting Cephalexin Hives and Rash KEFLEX Nsaids GI BLEED when not taking with food Latex Rash Medications: Patient Reported Taking Dosage famotidine (PEPCID) 20 mg tablet (Taking) Take 1 tablet by mouth 2 times daily. Number of times this order has been changed since signin Order Audit [facility] omeprazole (PRILOSEC) 20 mg capsule (Taking) Take 1 capsule by mouth 2 times daily. Number of times this order has been changed since signin Order Audit [facility] raNITIdine (ZANTAC) 150 mg tablet (Taking) Take 150 mg by mouth Daily. Number of times this order has been changed since signin Order Audit [facility] varenicline (CHANTIX) 1 MG tablet (Taking) Take 1 tablet by mouth 2 times daily. Number of times this order has been changed since signin Order Audit [facility] Past Medical History She has a past [...] Inner ear surgery (1987); Tubal ligation (Luis ateral, 2008); Tonsillectomy and adenoidectomy (1987); polypectomy (08/22/2014); Esophagus d ilation (08/22/2014); and Appendectomy. Social History Substance Use Topics Smoking status: Current Every Day Smoker Packs/day: 0.50 Years: 21.00 Types: Cigarettes Start date: 1993 Smokeless tobacco: Never Used Alcohol use 0.0 oz/week Comment: Use: Current wine cooler every 6 months Review of Systems Constitutional: Positive for chills. Negative for diaphoresis. HENT: Positive for congestion, ear pain (right), hoarse voice, sinus pressure, sneezing and sore throat ("irritation"). Respiratory: Positive for cough (mild). Negative for shortness of breath. Musculoskeletal: Negative for neck pain. Neurological: Positive for headaches. See HPI Objective: Vitals: 12/11/18 1458 BP: 118/60 Pulse: 85 Resp: 18 Temp: 36.7 C (98.1 F) TempSrc: Temporal SpO2: 100% Weight: 89.2 kg (196 lb 9.6 oz) Height: 1.676 m (5' 6") Patient's last menstrual period was 11/24/2018. Physical Exam Constitutional: She is oriented to person, place, and time. She appears well-developed and well-nourished. No distress. HENT: Head: Normocephalic and atraumatic. Right Ear: External ear and ear canal normal. Tympanic membrane is not erythematous and not bulging. A middle ear effusion (serous) is present. Left Ear: External ear and ear canal normal. Tympanic membrane is not erythematous and not bulging. A middle ear effusion (serous) is present. Nose: Mucosal edema, rhinorrhea and sinus tenderness (paranasal area) present. Mouth/Throat: Uvula is midline, oropharynx is clear and moist and mucous membranes are norm al. No oropharyngeal exudate, posterior oropharyngeal edema or posterior oropharyngeal eryth valentine. Moderate edema and mild erythema of turbinates with clear postnasal drainage. No petechiae present in oropharynx. No decreased transillumination of frontal or maxillary sinuses. Eyes: Pupils are equal, round, and reactive to light. Conjunctivae and lids are normal. Neck: Trachea normal and normal range of motion. Neck supple. Cardiovascular: Normal rate, regular rhythm, S1 normal, S2 normal and normal heart sounds. Exam reveals no gallop and no friction rub. No murmur heard. Pulmonary/Chest: Effort normal and breath sounds normal. No respiratory distress. She has n o decreased breath sounds. She has no wheezes. She has no rhonchi. She has no rales. She exh ibits no tenderness. Lymphadenopathy: She has cervical adenopathy. Right cervical: No posterior cervical adenopathy present. Left cervical: No posterior cervical adenopathy present. Neurological: She is alert and oriented to person, place, and time. Skin: Skin is warm and dry. No rash noted. Psychiatric: She has a normal mood and affect. Her behavior is normal. Nursing note and vitals reviewed. Assessment: 1. Acute viral sinusitis fluticasone (FLONASE) 50 mcg/nasal spray pseudoePHEDrine (SUDAFED) 120 mg 12 hr tablet cetirizine (ZYRTEC) 10 mg tablet ibuprofen (ADVIL,MOTRIN) 600 MG tablet Plan: 1. Acute viral sinusitis - fluticasone (FLONASE) 50 mcg/nasal spray; 1 spray by Nasal route 2 times daily. Dispense : 16 g; Refill: 1 - pseudoePHEDrine (SUDAFED) 120 mg 12 hr tablet; Take 1 tablet by mouth every 12 hours as n eeded for Congestion. Dispense: 30 tablet; Refill: 0 - cetirizine (ZYRTEC) 10 mg tablet; Take 1 tablet by mouth Daily. Dispense: 30 tablet; Ref ill: 1 - ibuprofen (ADVIL,MOTRIN) 600 MG tablet; Take 1 tablet by mouth every 8 hours as needed fo r Pain. Dispense: 90 tablet; Refill: 0 - Discussed with patient that at this time this appears to be a viral URI causing inflammat ion of the sinuses rather than a true bacterial sinus infection. - Ibuprofen as needed with food for fever/pain, may alternate with acetaminophen for better coverage. - Nasal steroid spray daily as needed for congestion and postnasal drainage. - Antihistamine daily as needed for mucous production or allergy symptoms. - May use Sudafed as needed, increase fluid intake significantly if using this. - Saline sprays or rinses as needed/tolerated. - Cool mist vaporizer in room or warm steamy showers to help loosen mucous and relieve marina estion. - Rest, increase fluid intake, good hand hygiene. Cover coughs and sneezes. - If no improvement in symptoms by Tuesday12/16/18, patient advised to call and I will sen d doxycycline 100 mg caps; Take 1 capsule twice daily for 10 days; Disp #20; Refill 0. See AVS for patient instructions. Diagnosis and plan including medications and side effects were discussed with the patient a nd information handout was given. Patient voices understanding of the plan and all questions were answered. Follow up with Primary Care Provider or return to clinic if not improving in 1 week or if s ymptoms worsen. do cumented in this encounter Plan of Treatment Not on filedocumented as of this encounter Visit Diagnoses + + | Diagnosis | + + | Acute viral sinusitis - Primary | + + documented in this encounter
--- OUTSIDE RECORDS SUMMARY | ~2019-02-13 | XMS | Encounter Summary ---
Demographics + + + | Address | [address] | | | [place] [address] | + + + | Home Phone | | + + + | Preferred Language | Unknown | + + + | Marital Status | | + + + | Sikhism Affiliation | Unknown | + + + | Race | Unknown | + + + | Ethnic Group | Unknown | + + + Author + + + | Author | [facility] | | | and [...] Team Providers + +------+ + | Care Weekend Receptionist Name | Role | Phone | + [...] + + | 02/12/ | Telephone | [facility] | Gian Kothari, | Medication Prior | | 2019 | | MEDICINE [address] | MD Ralph CORDOBA | Authorization | | | | [facility] | [place], [place] | (Omeprazole ) | | | | [place] [address] | [phone] | | | | | [phone] | | | +--------+ + + + [...]
--- OUTSIDE RECORDS SUMMARY | ~2019-02-13 | XMS | Clinical Summary ---
Demographics + + + | Address | [address] | | | [place] [address] | + + + | Home Phone | | + + + | Preferred Language | Unknown | + + + | Marital Status | | + + + | Mormon Affiliation | Unknown | + + + | Race | Unknown | + + + | Ethnic Group | Unknown | + + + Author + + + | Author | [facility] | | | and [place] | + + + | Organization | [facility] | | [...] Team Providers + +------+ + | Care Filter Cleaner Name | Role | Phone | + [...] ST. | [address] | [place], [place] | [phone] | | [facility] | | [address] | | | - LABORATORY | | [...] [address] | [place] | [phone] | | [facility] | | [address] | | | - LABORATORY | | [...] - 1.030 | [facility] | | | [place] | | | [facility] | | [...] [address] | [place] | [phone] | | [facility] | | [address] | | | - LABORATORY | | [...] ranges: Trim. Absolute (K/uL) Percentage (%) | [facility] | | 1st 0.003-0.091 K/uL 0.0-0.9% [...] [address] | [place] | [phone] | | [facility] | | [address] | | | - LABORATORY | | [...] [address] | [place] | [phone] | | [facility] | | [address] | | | - LABORATORY | | [...] 14 | 7 - 18 mg/dL | [place] | | | | | | [facility] | | | | | | MEDICAL | | | | | | CENTER - | | | | | | LABORATORY | | + + + + + + | Creatinine | 0.71 | 0.60 - 1.30 | [place] | | | | | mg/dL | [facility] | | | | | | MEDICAL | | | | | | CENTER - | | | | | | LABORATORY | | + + + + + + | eGFR if not | >60Comment: GLOMERULAR | >=60 | [place] | | | | FILTRATION | mL/min/1.73m2 | [facility] | | | [place] | RATE,ESTIMATED mL/min | | MEDICAL | | | | /1.79p6Ajcm than 60 | | CENTER - | [...] ST. | [address] | [place] | [phone] | | [facility] | | [address] | | | - LABORATORY | | [...] | FINN MEDICAID HMO | FINN | [id number] | 04/23/20 | | | Medica | [...] Tiffanie | semaj/Buddy | | 1980 | [phone] | [place] | | | tayler | | | 2 (Home) | [id number] | + +--------+ +--------+ + + Advance Directives Patient has advance care planning documents on file. For more information, please contact:[facility] [place] [address]
--- OUTSIDE RECORDS SUMMARY | ~2019-02-13 | XMS | Encounter Summary ---
Demographics + + + | Address | [address] | | | [place] [address] | + + + | Home Phone | | + + + | Preferred Language | Unknown | + + + | Marital Status | | + + + | Zoroastrian Affiliation | Unknown | + + + | Race | Unknown | + + + | Ethnic Group | Unknown | + + + Author + + + | Author | [facility] | | | and [place] | + + + | Organization | [facility] | | | and [...] Team Providers + +------+ + | Care Motor Analyst Name | Role | Phone | + [...] [place] | non-recurrent | | | | [address] | [address] | maxillary sinusitis; | | | | [phone] | | Tobacco dependence | +--------+---------+ + [...] exposed to secondhand smoke. You may use iidw-lfj-ajggydj medicine to control fever or pain, unless [...] loosen secretions in the nose and lungs. Sapd-kil-jdjjxvp cough, cold, and sore-throat medicines will not [...] be worsening. If this happens, contact [facility] provider. If prescribed, finish all antibiotic [...] pain with breathi ng Date Last Reviewed: 07/06/201519997778-2659 [employer]. [address] [place] [address], [place] [address]. All righ ts reserved. This information is not intended as a substitute for professional medical care. Always follow your healthcare professional's instructions. documented in this encounter Progress Notes Rebekah Francis MD - 12/18/2018 5145 PSTFormatting of this note might be different [...] despite that. This note was dictated using marshallindex voice recognition software. Occasional wrong- word or [...]
--- OUTSIDE RECORDS SUMMARY | ~2019-02-13 | XMS | Encounter Summary ---
Demographics + + + | Address | [address] | | | [place] [address] | + + + | Home Phone | | + + + | Preferred Language | Unknown | + + + | Marital Status | | + + + | Sabianism Affiliation | Unknown | + + + | Race | Unknown | + + + | Ethnic Group | Unknown | + + + Author + + + | Author | [facility] | | | and [place] | + + + | Organization | [facility] | | [...] Team Providers + +------+ + | Care Endocrinology Teacher Name | Role | Phone | + [...] viral | | 2019 | Visit | REPLACED BY [facility] | [place] [address] | sinusitis (Primary | | | | [address] [place] | [place] | Dx) | | | | [place] [address] | [facility], | | | | | [phone] | [place] [address] | | | | | | [phone] | | | | | | | [...] sinuses drain fluids. You can use an bgpp-jcf-rfwkuepxriecpepnouj,unless a similar medicine was prescribed to you. [...] decongestants. They can raise bl ood pressure.) Bnnd-qpw-gdjphggopruikkgtwdkcpabc help if allergies contributed to your sinusitis. [...] away in 10 days Date Last Reviewed: 08/24/201719999526-1959 [employer]. [address] [place] [address]. All righ ts reserved. This information is [...] to help relieve them. Date Last Reviewed: 07/24/201619996581-3759 [employer]. [address] [place] [address], [place] [address]. All righ ts reserved. This information is [...] has been changed since signin Order Audit [place] omeprazole (PRILOSEC) 20 mg capsule (Taking) Take 1 capsule by mouth 2 times daily. Number of times this order has been changed since signin Order Audit [place] raNITIdine (ZANTAC) 150 mg tablet (Taking) Take 150 mg by mouth Daily. Number of times this order has been changed since signin Order Audit [place] varenicline (CHANTIX) 1 MG tablet (Taking) Take 1 tablet by mouth 2 times daily. Number of times this order has been changed since signin Order Audit [place] Past Medical History She has a past [...]
--- OUTSIDE RECORDS SUMMARY | ~2019-02-13 | XMS | Encounter Summary ---
Demographics + + + | Address | [address] | | | [place] [address] | + + + | Home Phone | | + + + | Preferred Language | Unknown | + + + | Marital Status | | + + + | Jewish Affiliation | Unknown | + + + | Race | Unknown | + + + | Ethnic Group | Unknown | + + + Author + + + | Author | [facility] | | | and [place] | + + + | Organization | [facility] | | | [...] Team Providers + +------+ + | Care Relay Worker Name | Role | Phone | + [...] URI | | 2019 | Visit | [facility] [address] | A, [facility] [address] | (Primary Dx); Acute | | | | [address] | [place] [address] | bronchitis, | | | | [address] [facility] | [phone] | unspecified organism | | | | [place] [address] | | | | | | [phone] | | | +--------+---------+ + + + [...] has been changed since signin Order Audit [place] famotidine (PEPCID) 20 mg tablet (Taking) Take 1 tablet by mouth 2 times daily. Number of times this order has been changed since signin Order Audit [facility] fluticasone (FLONASE) 50 mcg/nasal spray (Taking) 1 spray by Nasal route 2 times daily. Number of times this order has been changed since signin Order Audit [facility] ibuprofen (ADVIL,MOTRIN) 600 MG tablet (Taking) Take 1 tablet by mouth every 8 hours as n eeded for Pain. Number of times this order has been changed since signin Order Audit [facility] omeprazole (PRILOSEC) 20 mg capsule (Taking) Take 1 capsule by mouth 2 times daily. Number of times this order has been changed since signin Order Audit [facility] pseudoePHEDrine (SUDAFED) 120 mg 12 hr tablet (Taking) Take 1 tablet by mouth every 12 ho urs as needed for Congestion. Number of times this order has been changed since signin Order Audit [place] raNITIdine (ZANTAC) 150 mg tablet (Taking) Take 150 mg by mouth Daily. Number of times this order has been changed since signin Order Audit [place] varenicline (CHANTIX) 1 MG tablet (Taking) Take 1 tablet by mouth 2 times daily. Number of times this order has been changed since signin Order Audit [place] Past Medical History She has a past [...] pH, Urine 6.0 5.0 - 8.0 Specific [place] 1.018 1.001 - 1.030 Protein, Urine Negative [...]
--- OUTSIDE RECORDS SUMMARY | 2019-02-13 15:12 | XMS ---
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 Yanci VISIT COUNT (12 MO.) 2 Kelsea Kelly M[facility] 2 ILDA Garsia TOTAL 4 NOTE: Visits indicate total known visits. ED/UCC VISIT TRACKING (12 MO.) 02/13/2019 15:09 [place] TYPE: Emergency COMPLAINT: - ANKLE INJURY/WORK CLEARANCE 01/25/2019 14:30 [place] [place] TYPE: Emergency COMPLAINT: - RIGHT FOOT INJURY DIAGNOSES: - Allergy status to penicillin - Nicotine dependence, unspecified, uncomplicated - Other and unspecified overexertion or strenuous movements or postures, initial encounter - Allergy status to other antibiotic agents status - Pain in right ankle and joints of right foot - Sprain of unspecified ligament of right ankle, initial encounter 12/18/2018 17:03 [facility] [place] TYPE: Urgent Care DIAGNOSES: - Shortness of Breath - Chest Pain - Bronchitis - Bronchitis, not specified as acute or chronic - Otalgia 11/19/2018 17:48 [facility] [place] TYPE: Emergency DIAGNOSES: - Epigastric pain - abd pain - Gastric Reflux - Abdominal Pain 10/21/2018 20:17 [facility] [place] TYPE: Emergency DIAGNOSES: - abd pain,nausea - Procedure and treatment not carried out due to patient leaving prior to being seen by health care provider - abd pain,nausea,chest pain 06/18/2018 14:45 [facility] [place] TYPE: Urgent Care DIAGNOSES: - Dysuria - Dysuria - Acute cystitis without hematuria INPATIENT VISIT TRACKING (12 MO.) No inpatient visits to display in this time frame [id number]
== END 2019-02-13 15:28 | disposition home or self-care (01) ==
LOC: ED 15:06
DX: S99.912A Unspecified injury of left ankle, initial encounter (principal); X58.XXXA Exposure to other specified factors, initial encounter